=== PATIENT | male | born 1935 | race Caucasian/White ===

== ENCOUNTER → 2016-10-09 | Outpatient (CLI) | payer MEDICARE, OTHER ==
[~2016-10-09] MED LIST: FAMC500T8 PO; FLUO-88 PO; GLIM4TAB32 PO; INSU100V28 SQ; METF-206 PO; PIOG30TA PO; SIMV40TA73 PO; TRAV2.5D OP
--- NOTE | 2016-10-09 14:59 | DI ---
INDICATION: ITS.REASON: R05 COUGH PROCEDURE: CHEST 2-VIEWS UPRIGHT (PA \T\ LAT) Encounter: Initial COMPARISON: None FINDINGS: The lungs are clear without evidence of focal abnormal airspace opacity. There is no pleural effusion or pneumothorax. The heart size, mediastinal contours and pulmonary vascularity are within normal limits. Mild degenerative change in the spine. IMPRESSION: No acute cardiopulmonary disease. .
== END ==
LOC: IMA 14:29
PROVIDERS: ATTEND Family Medicine
DX: R05 Cough (principal)
CPT/HCPCS: 87486; 87581; 87633; 87798